=== PATIENT | male | born 1990 | race African-American/Black ===

== ENCOUNTER 2017-07-28 22:13 | Emergency (ER) | payer MEDICAID ==
[~2017-07-28] VITALS: Ht 175.3 cm; Wt 58.0 kg
[2017-07-28 22:50] VITALS: BP 114/75
[2017-07-29 00:12] LABS: BASOPHILS % 0.3 % (0.0-2.0); EOSINOPHILS % 2.1 % (0.0-5.0); HEMATOCRIT. 43.2 % (42.0-52.0); HEMOGLOBIN. 14.8 g/dL (14.0-18.0); LYMPHOCYTES % 46.1 % (20.0-50.0); MEAN CORPUSCULAR HEMOGLOBIN 30.6 pg (28.0-32.0); MEAN CORPUSCULAR VOLUME 89.4 fL (80.0-94.0); MEAN PLATELET VOLUME 8.4 fl (7.4-10.4); MONOCYTES % 9.2 % (2.0-8.0); NEUTROPHILS % 42.3 % (40.0-76.0); PLATELET 62 x1000/uL (130-400); RED BLOOD CELL COUNT 4.83 mill/uL (4.7-6.1); RED CELL DISTRIBUTION WIDTH 12.7 % (11.6-14.6)
[2017-07-29 00:16] LABS: CHLORIDE 105 mEq/L (98-107)
== END 2017-07-29 00:25 | disposition left against medical advice (07) ==
LOC: ER 22:13
DX: R07.9 Chest pain, unspecified (principal); R06.02 Shortness of breath
CPT/HCPCS: 36415; 80053; 83880; 84484; 85025; 93005; 99285